=== PATIENT | female | born 2000 | race Caucasian/White ===

== ENCOUNTER 2020-11-26 14:02 | Emergency (ER) | payer BC, MEDICAID ==
[~2020-11-26] VITALS: Ht 162.6 cm; Wt 141.4 kg
[2020-11-26 14:12] VITALS: BP 143/88; TEMP 98.2
[2020-11-26 15:04] LABS: BASO % 0.3 % (0.0-2.0); EOS # 0.2 (0.0-0.7); EOS % 2.6 % (0-4.0); GRAN # 4.8 (1.4-6.5); GRAN % 62.7 % (42.2-75.2); HEMATOCRIT 41.1 % (37.0-47.0); HEMOGLOBIN 13.7 g/dl (12.5-16.0); LYMPH # 1.7 (1.2-3.4); LYMPH % 22.2 % (20.0-51.0); MEAN CELL VOLUME 89 fl (80.0-100.0); MEAN CORPUSCULAR HEMOGLOBIN 30 pg (27.0-31.0); MEAN CORPUSCULAR HGB CONC 33 g/dl (33.0-37.0); MEAN PLATELET VOLUME 10.5 fl (7.4-10.4); MONO # 0.9 (0.1-0.6); MONO % 11.5 % (1.7-9.3); PLATELET COUNT 187 K/mm3 (130-400); RED BLOOD COUNT 4.62 M/mm3 (4.10-5.30); REDCELL DISTRIBUTION WIDTH-CV 13.2 % (11.5-14.5)
[2020-11-26 15:15] LABS: ALBUMIN 3.9 gm/dL (3.5-5.0); BILIRUBIN,TOTAL 0.4 mg/dL (0.0-1.0); C-REACTIVE PROTEIN 1.6 mg/dL (0.0-0.9); CALCIUM 9.2 mg/dL (8.4-10.2); CREATININE, serum 0.5 (0.52-1.25); POTASSIUM 4.3 mmol/L (3.4-5.0); TOTAL PROTEIN 7.4 gm/dL (6.4-8.2)
[2020-11-26 15:20] LABS: STREP SCREEN NEGATIVE
[2020-11-26] MEDS ORDERED: PHENERGAN 25 TA25 MG PO (16:04)
[2020-11-26 16:40] VITALS: PULSE 71
== END 2020-11-26 16:40 | disposition home or self-care (01) ==
LOC: COL.ER 14:02
PROVIDERS: Emergency Medicine
DX: O99.511 Diseases of the respiratory system complicating pregnancy, first trimester (principal); J02.9 Acute pharyngitis, unspecified; O99.331 Smoking (tobacco) complicating pregnancy, first trimester; F17.210 Nicotine dependence, cigarettes, uncomplicated; Z20.822 Contact with and (suspected) exposure to COVID-19; Z3A.14 14 weeks gestation of pregnancy
CPT/HCPCS: J1100; J2550; J7030

== ENCOUNTER 2020-12-13 21:30 | Emergency (ER) | payer BC, MEDICAID ==
[~2020-12-13] VITALS: Ht 162.6 cm; Wt 140.9 kg
[~2020-12-13 21:30] MED LIST: PHENERGAN 25 TA25 MG PO
[2020-12-13 21:38] VITALS: TEMP 97.6
[2020-12-13 22:11] LABS: MUCOUS Present /lpf; PH 5 (5-8); URINE APPEARANCE Cloudy; URINE BACTERIA Rare /hpf; URINE BILIRUBIN Negative (NEGATIVE); URINE BLOOD 2+ (NEGATIVE); URINE COLOR Yellow; URINE GLUCOSE Negative (NEGATIVE); URINE KETONE Negative (NEGATIVE); URINE LEUKOCYTE ESTERASE 2+ (NEGATIVE); URINE NITRATE Negative (NEGATIVE); URINE PROTEIN(semi-quant) 2+ (NEGATIVE); URINE RBC >50 /hpf; URINE UROBILINOGEN Negative (NEGATIVE); URINE WBC None Seen /hpf
[2020-12-13 22:22] LABS: COLLECTION METHOD CLEAN CATCH
[2020-12-13 22:29] LABS: BASO % 0.1 % (0.0-2.0); EOS # 0.2 (0.0-0.7); EOS % 2.2 % (0-4.0); GRAN # 7.1 (1.4-6.5); GRAN % 68.8 % (42.2-75.2); HEMATOCRIT 42.8 % (37.0-47.0); LYMPH # 2.3 (1.2-3.4); LYMPH % 22.1 % (20.0-51.0); MEAN CELL VOLUME 91 fl (80.0-100.0); MEAN CORPUSCULAR HEMOGLOBIN 30 pg (27.0-31.0); MEAN CORPUSCULAR HGB CONC 33 g/dl (33.0-37.0); MEAN PLATELET VOLUME 10.3 fl (7.4-10.4); MONO # 0.7 (0.1-0.6); MONO % 6.4 % (1.7-9.3); PLATELET COUNT 205 K/mm3 (130-400); RED BLOOD COUNT 4.69 M/mm3 (4.10-5.30); REDCELL DISTRIBUTION WIDTH-CV 13.5 % (11.5-14.5)
[2020-12-13] MEDS ORDERED: CEPHALEXIN500 M1 PO (23:30)
[2020-12-13 23:44] VITALS: BP 154/70; PULSE 68
== END 2020-12-13 23:44 | disposition home or self-care (01) ==
LOC: COL.ER 21:30
PROVIDERS: Emergency Medicine; Nurse Practitioner Primary Care
DX: N39.0 Urinary tract infection, site not specified (principal); F17.210 Nicotine dependence, cigarettes, uncomplicated
CPT/HCPCS: J0696

== ENCOUNTER 2021-03-20 13:51 | Emergency (ER) | payer BC, MEDICAID ==
[~2021-03-20] VITALS: Ht 162.6 cm; Wt 148.6 kg
[2021-03-20 14:45] VITALS: BP 118/72; PULSE 88
== END 2021-03-20 14:45 | disposition home or self-care (01) ==
LOC: COL.ER 13:51
DX: O9A.23 Injury, poisoning and certain other consequences of external causes complicating the puerperium (principal); S39.012A Strain of muscle, fascia and tendon of lower back, initial encounter; Z3A.30 30 weeks gestation of pregnancy; W10.9XXA Fall (on) (from) unspecified stairs and steps, initial encounter; Y93.01 Activity, walking, marching and hiking

== ENCOUNTER → 2021-03-20 | Outpatient (CLI) | payer BC, MEDICAID ==
[~2021-03-20] VITALS: Ht 162.6 cm; Wt 148.6 kg
[~2021-03-20] MED LIST changes: +CEPHALEXIN500 M1 PO
[2021-03-20 13:15] VITALS: BP 128/69; PULSE 83; TEMP 97.8
--- NOTE | 2021-03-20 13:32 | NUR ---
1315 PATIENT HERE WITH COMPLAINTS OF LOW BACK PAIN AND LEG PAIN WHEN TAKES A STEP. RIGHT LEG GIVES OUT ON HER OCCASIONALLY ALSO. PATIENT WAS WALKING UP STAIRS YESTERDAY MORNING AND HER LEG GAVE OUT ON HER. PATIENT STATES SHE TURNED SO SHE DID NOT HIT OR FALL ON ABDOMEN AND HIT HER UPPER CHEST INSTEAD. PATIENT HAS BRUISING TO UPPER CHEST, BUT NO BRUISING TO ABDOMEN. NO COMPLAINTS OF CRAMPING OR CONTRACTIONS, AND NO VAGINAL BLEEDING NOTED. EFM ON FHT 135 GOOD ACCELERATIONS NOTED AND BABY IS VERY ACTIVE. NO CONTRACTIONS ON MONITOR OR PALPATED. ASSESSMENT COMPLETED BY Marva VILLALOBOS RN. DR RITTER CALLED AND UPDATED ON ALL ABOVE INFORMATION. ORDERS TO GET A 20 MIN REACTIVE STRIP AND TRANSFER PATIENT TO ER FOR BACK AND LEG DISCOMFORT. PATIENT DENIES AND OB RELATED DISCOMFORT AT THIS TIME.
--- NOTE | 2021-03-20 13:52 | NUR ---
1350 PATIENT TO ER VIA WHEELCHAIR. ER WILL ASSUME CARE AT THIS TIME
== END ==
LOC: COL.ER 12:47 → LDRO 12:50 → EDSTATUS 13:36
DX: O9A.213 Injury, poisoning and certain other consequences of external causes complicating pregnancy, third trimester (principal); Z3A.25 25 weeks gestation of pregnancy; Z87.891 Personal history of nicotine dependence

== ENCOUNTER 2021-05-08 12:32 | Outpatient (CLI) | payer MEDICAID ==
[~2021-05-08] VITALS: Ht 162.6 cm; Wt 157.4 kg
[2021-05-08] MEDS ORDERED: PRENATAL TABLET PO (13:01)
[2021-05-08 13:30] VITALS: BP 118/77; PULSE 101; TEMP 98.3
--- NOTE | 2021-05-08 13:37 | NUR ---
1235: PT. AMBULATORY TO UNIT W/ SPOUSE FOR C/O OF SWELLING AND BO. PT. ESCORTED TO LR3 AND INTO CLEAN GOWN. EFM/TOCO ON, VS OBTAINED, ASSESSMENTS COMPLETED. DISCUSSED POC W/ PT AND PT. STATES NO QUESTIONS/CONCERNS AT THIS TIME. WILL CONTINUE TO MONITOR PT AND FHT
[2021-05-08 13:45] VITALS: BP 135/86; PULSE 88
[2021-05-08 14:00] VITALS: BP 135/92; PULSE 88
--- NOTE | 2021-05-08 14:01 | NUR ---
FHT 1330: DIFFICULTY TRACING FHT; RN AT BS ATTEMPTING TO TRACE. 1345: DIFFICULTY TRACING FHT DUE TO MATERNAL HABITUS; RN AT BS ATTEMPTING TO TRACE FHT
[2021-05-08 14:28] LABS: BASO % 0.2 % (0.0-2.0); EOS # 0.1 K/mm3 (0.0-0.7); EOS % 0.9 % (0.0-4.0); GRAN # 9.6 K/mm3 (1.4-6.5); GRAN % 76.8 % (42.2-75.2); HEMOGLOBIN 11.7 g/dl (12.5-16.0); LYMPH # 1.9 K/mm3 (1.2-3.4); LYMPH % 15.3 % (20.0-51.0); MEAN CELL VOLUME 90 fl (80.0-100.0); MEAN CORPUSCULAR HEMOGLOBIN 30 pg (27-31); MEAN CORPUSCULAR HGB CONC 34 g/dl (33.0-37.0); MEAN PLATELET VOLUME 10.1 fl (7.4-10.4); MONO # 0.8 K/mm3 (0.1-0.6); PLATELET COUNT 187 K/mm3 (130-400); RED BLOOD COUNT 3.88 M/mm3 (4.10-5.30); REDCELL DISTRIBUTION WIDTH-CV 13.2 % (11.5-14.5)
[2021-05-08 14:30] VITALS: BP 120/75; PULSE 96
[2021-05-08 14:32] LABS: HEMATOCRIT 34.9 % (37.0-47.0)
[2021-05-08 14:42] LABS: COLLECTION METHOD CLEAN CATCH; URINE COLOR Yellow (YELLOW)
[2021-05-08 14:43] LABS: PH 7 (5-8); URINE APPEARANCE Hazy (CLEAR/HAZY); URINE BILIRUBIN Negative (NEGATIVE); URINE BLOOD Negative (NEGATIVE); URINE GLUCOSE Negative (NEGATIVE); URINE KETONE Negative (NEGATIVE); URINE LEUKOCYTE ESTERASE Negative (NEGATIVE); URINE NITRATE Negative (NEGATIVE); URINE PROTEIN(semi-quant) Negative (NEGATIVE); URINE UROBILINOGEN Negative (NEGATIVE)
[2021-05-08 14:50] LABS: ALBUMIN 2.5 gm/dL (3.5-5.0); BILIRUBIN,TOTAL 0.3 mg/dL (0.2-1.2); CALCIUM 8.3 mg/dL (8.4-10.2); CREATININE, serum 0.62 mg/dL (0.57-1.11); TOTAL PROTEIN 6.2 gm/dL (6.2-8.1)
[2021-05-08 15:00] VITALS: PULSE 83
[2021-05-08 15:21] VITALS: BP 132/84; PULSE 83
--- NOTE | 2021-05-08 15:39 | NUR ---
1530: DISCHARGED PER DR. FAN. RN WENT OVER DC PAPERWORK WITH PT. PT. HAS NO QUESTIONS/CONCERNS AT THIS TIME. PT. STABLE AND STEADY GAIT TO FRONT OF UNIT WITH RN. RN INFORMED TO CALL WITH ANY QUESTIONS/CONCERNS.
== END 2021-05-08 15:30 | disposition home or self-care (01) ==
LOC: LDRO 12:32 → LDR 13:08 → LDRO 15:30
PROVIDERS: Student in an Organized Health Care Education/Training Program
DX: O26.893 Other specified pregnancy related conditions, third trimester (principal); R51.9 Headache, unspecified; Z3A.37 37 weeks gestation of pregnancy
CPT/HCPCS: OP

== ENCOUNTER 2021-05-11 00:36 | Outpatient (CLI) | payer MEDICAID ==
[~2021-05-11] VITALS: Ht 162.6 cm; Wt 157.3 kg
[~2021-05-11 00:36] MED LIST changes: +PRENATAL TABLET PO
[2021-05-11 01:00] VITALS: BP 142/64; PULSE 89; TEMP 98.4
--- NOTE | 2021-05-11 01:00 | NUR ---
0100 G1L0 37.6 WEEK GEST TO LR4 WITH C/O SROM AFTER INTERCOARSE THIS EVENING AND NOW HAVING CONTRACTIONS EVERY 5 MINUTES. EFM. HARD TO TRACE FHT'S DUE TO PT BEING 346 LBS. STATES FEELS CONTRACTIONS EVERY 5 MINUTES THAT ARE SHARP AND LAST ABOUT 30 SECONDS. UNABLE TO TRACE OR PALPATE CONTRACTIONS. BABY VERY ACTIVE WITH BASELINE 140 AND ACCELS TO 160'S. SVE CLOSE/ THICK / -3 AND BALLOTABLE. AMNIOTRACE NEG WITH SLIGHT NARAYANAN TONES NOTED AROUND COTTON TIP. INTROITUS WAS MOIST BUT NO FLUID NOTED WITH SVE. ADM ASSESSMENT COMPLETED. 0130 LARGE EMESIS. STATES USUALLY THROWS UP IF HAVING PAIN OR SOMETIME JUST WALKING AROUND AT WORK.
[2021-05-11 02:00] VITALS: BP 143/71; PULSE 79
--- NOTE | 2021-05-11 02:00 | NUR ---
0200 SVE WITH NEG AMNIOTRACE, NO FLUID NOTED AND NO CERVICAL CHANGE. CONTRACTION NOTED EVERY 8 MIN ON EFM BUT PT MORE COMFORTABLE NOW THEN ON ADM. 0210 DR BECKETT NOTIFIED AND DISMISS INSTRUCTIONS RECEIVED. 0225 HOME WITH INSTRUCTIONS.
== END 2021-05-11 02:25 | disposition home or self-care (01) ==
LOC: LDRO 00:36 → LDR 00:36 → LDRO 02:25
DX: O42.10 Premature rupture of membranes, onset of labor more than 24 hours following rupture, unspecified weeks of gestation (principal); Z3A.37 37 weeks gestation of pregnancy
CPT/HCPCS: OP

== ENCOUNTER 2021-05-20 12:54 | Outpatient (CLI) | payer MEDICAID ==
[~2021-05-20] VITALS: Ht 162.6 cm; Wt 159.5 kg
--- NOTE | 2021-05-20 13:00 | NUR ---
1300-39.2 G1L1 arrives on unit. States she was seen in clinic and had a low PILI. Pt states she feels increased vaginal discharge. Reports last movement yesterday. Denies VB or contractions. Changes into clean gown. Resting in bed. 1305- EFM explained and placed. RN remains at bedside adj efm. FHR difficult to trace due to maternal habitus. VS obtained, assessment completed. C. Case updateds Dr. Shields. See physician notification. Pt updated on plan of care. 1315- C. Case at bedside. 1325- C. Case at nurses desk. Notifies this RN spec exam done with thick white discharge noted. Amnitest negative. SVE Cl/Th/Hi. 1340- FHR reactive. EFM off. 1355- Discharge instructions reviewed with patient and family who verbalize understanding. Ambulatory off unit with family.
[2021-05-20 13:10] VITALS: BP 143/89; PULSE 88; TEMP 97.9
[2021-05-20 13:30] VITALS: BP 146/87; PULSE 89
[2021-05-20 13:40] VITALS: BP 134/86; PULSE 92
== END 2021-05-20 13:55 | disposition home or self-care (01) ==
LOC: LDRO 12:54 → LDR 13:00 → LDRO 13:55
DX: O26.893 Other specified pregnancy related conditions, third trimester (principal); N89.8 Other specified noninflammatory disorders of vagina; Z3A.39 39 weeks gestation of pregnancy
CPT/HCPCS: OP

== ENCOUNTER 2021-05-21 23:00 | Outpatient (CLI) | payer MEDICAID ==
[~2021-05-21] VITALS: Ht 162.6 cm; Wt 159.5 kg
--- NOTE | 2021-05-21 23:00 | NUR ---
2315 G1L0 39.3 WEEK GEST TO LR4 WITH C/O NO MOVEMENT FELT X3 DAYS. STATES WAS AT THE DOCTORS OFFICE YESTERDAY FOR SONO AND WAS SENT IMMEDIATELY TO L/D TO BE CHECKED OUT AND WAS SENT HOME FROM LABOR AND DELIVERY AFTER MONITER CHECK AND SVE. STATES IS UNHAPPY BECAUSE FEELS LIKE NO ONE IS TAKING HER CONCERNS SERIOUSLY. EFM ON. ADM ASSESSMENT DONE. 2340 HEART TONE BASELINE 130'S WITH GOOD VARIABILITY AND ACCELS NOTED. STATES HAS FELT THE BABY MOVE A COUPLE OF TIMES NOW. NO C/O CONTRACTIONS.
[2021-05-21 23:20] VITALS: BP 135/65; PULSE 100; TEMP 97.9
--- NOTE | 2021-05-21 23:50 | NUR ---
2350 FEELING THE BABY MOVE MORE NOW. GOOD ACCELS AND VARIABILITY NOTED. DR PABLO NOTIFIED AND ORDER TO DISMISS RECEIVED. 0001 HOME WITH INSTRUCTIONS.
== END 2021-05-22 00:01 | disposition home or self-care (01) ==
LOC: LDRO 23:00
DX: O36.8199 Decreased fetal movements, unspecified trimester, other fetus (principal); Z3A.39 39 weeks gestation of pregnancy

== ENCOUNTER 2021-05-23 17:47 | Inpatient (IN) | payer MEDICAID ==
[~2021-05-23] VITALS: Ht 162.6 cm; Wt 159.5 kg
[2021-05-23] VITALS (10 sets, daily range): BP systolic 133; BP diastolic 80; PULSE 78–88; TEMP 98.3
--- NOTE | 2021-05-23 18:30 | NUR ---
183-Patient who is , 39.5 week gestation, ambulates onto unit with S/O. Oriented to LDR6. Patient instructed to change into gown. Patient denies LOF, VB, and regular ctx. Patient reports decreased movement, states baby only moved once today. EFM/TOCO explained and applied. VS obtained. Plan of care discussed. 1844-IV started to RH. Blood obtained and sent to lab. Assessments completed. Plan of care discussed, patient verbalizes understanding.
--- NOTE | 2021-05-23 20:10 | NUR ---
2009-Difficulty tracing FHR due to maternal position and excess adipose tissue. RN at bedside adjusting monitors. 2049-Cytotec plan of care explained to patient and S/O. They both verbalize understanding. Consents explained and signed. 2099-First Cytotec dose administered. See EMAR. Patient repositioned in bed.
[2021-05-23 20:25] LABS: BASO % 0.3 % (0.0-2.0); EOS # 0.1 K/mm3 (0.0-0.7); EOS % 0.8 % (0.0-4.0); GRAN # 9.1 K/mm3 (1.4-6.5); GRAN % 75.9 % (42.2-75.2); HEMATOCRIT 38.8 % (37.0-47.0); LYMPH # 1.9 K/mm3 (1.2-3.4); LYMPH % 15.7 % (20.0-51.0); MEAN CELL VOLUME 90 fl (80.0-100.0); MEAN CORPUSCULAR HEMOGLOBIN 30 pg (27-31); MEAN CORPUSCULAR HGB CONC 34 g/dl (33.0-37.0); MEAN PLATELET VOLUME 10.9 fl (7.4-10.4); MONO # 0.7 K/mm3 (0.1-0.6); MONO % 6.1 % (1.7-9.3); PLATELET COUNT 216 K/mm3 (130-400); RED BLOOD COUNT 4.33 M/mm3 (4.10-5.30); REDCELL DISTRIBUTION WIDTH-CV 13.1 % (11.5-14.5)
[2021-05-23 21:47] LABS: ALBUMIN 2.7 gm/dL (3.5-5.0); BILIRUBIN,TOTAL 0.4 mg/dL (0.2-1.2); CALCIUM 8.4 mg/dL (8.4-10.2); CREATININE, serum 0.57 mg/dL (0.57-1.11); POTASSIUM 3.8 mmol/L (3.5-4.5); TOTAL PROTEIN 6.6 gm/dL (6.2-8.1)
--- NOTE | 2021-05-23 23:22 | NUR ---
[id number]: Difficulty tracing ctx due to maternal position. This RN at bedside adjusting monitors. 2340-Late deceleration noted. This RN at bedside repositioning patient and adjusting monitor.
[2021-05-24] VITALS (20 sets, daily range): BP systolic 76–143; BP diastolic 34–79; PULSE 56–89; TEMP 97.2–98.9
--- NOTE | 2021-05-24 00:20 | NUR ---
0020-Recurrent late decelerations noted on FHR strip. This RN at bedside repositioning patient. IVF blous started. Will continue to monitor.
--- NOTE | 2021-05-24 02:20 | NUR ---
0220-Difficulty tracing FHR due to maternal position. RN at bedside adjusting. 0223- at bedside discussing with patient and s/o. 0235-Patient is prepped for . 0242-Patient ambulates to OR.
--- NOTE | 2021-05-24 09:29 | NUR ---
Initial visit; Patient and visitors thanked for offering congratulations for the of her son. Shrimp Cleaner thanked patient for choosing our hospital.
--- NOTE | 2021-05-24 12:45 | NUR ---
Pt up to the bathroom with stand-by assist and without complications. Hardwick removed. Norma-care done. Plan of care reviewed with pt.
[2021-05-24 13:29] LABS: HEMATOCRIT 37.2 % (37.0-47.0); HEMOGLOBIN 12.4 g/dl (12.5-16.0)
[2021-05-25 08:00] VITALS: BP 128/81; PULSE 87; TEMP 98
[2021-05-25] MEDS ORDERED: PERCOCET 325 MG1 TA2 PO (10:27)
[2021-05-25] MEDS ORDERED: IBU600 MG PO (10:27)
== END 2021-05-25 11:40 | disposition home or self-care (01) | DRG 788 ==
LOC: OB 17:47 → LDR 18:22 → OB 18:22
PROVIDERS: ADMIT Obstetrics & Gynecology
PROC: 3E0P7VZ Introduction of Hormone into Female Reproductive, Via Natural or Artificial Opening (ICD-10-PCS; 2021-05-23)
PROC: 10D00Z1 Extraction of Products of Conception, Low, Open Approach (ICD-10-PCS; principal; 2021-05-24)
DX: O36.8130 Decreased fetal movements, third trimester, not applicable or unspecified (principal); O34.40 Maternal care for other abnormalities of cervix, unspecified trimester; O99.213 Obesity complicating pregnancy, third trimester; O99.824 Streptococcus B carrier state complicating childbirth; O99.334 Smoking (tobacco) complicating childbirth; O76 Abnormality in fetal heart rate and rhythm complicating labor and delivery; O13.4 Gestational [pregnancy-induced] hypertension without significant proteinuria, complicating childbirth; O99.344 Other mental disorders complicating childbirth; F41.9 Anxiety disorder, unspecified; F32.A Depression, unspecified; Z37.0 Single live birth; Z3A.39 39 weeks gestation of pregnancy
CPT/HCPCS: J0171; J0690; J1100; J1885; J2370; J2405; J2590; J7120

== ENCOUNTER 2024-01-06 16:15 | Emergency (ER) | payer MEDICAID ==
[~2024-01-06] VITALS: Ht 162.6 cm; Wt 193.6 kg
[~2024-01-06 16:15] MED LIST changes: +IBU600 MG PO; +NORCO 325 MG-51 TAB PO; +PERCOCET 325 MG1 TA2 PO
[2024-01-06 16:21] VITALS: TEMP 98.2
[2024-01-06] MEDS ORDERED: NS 1,000 ML IV ONE (17:00)
[2024-01-06 17:05] LABS: BASO % 0.3 % (0.0-2.0); EOS # 0.1 K/mm3 (0.0-0.7); EOS % 1.2 % (0.0-4.0); GRAN # 6.6 K/mm3 (1.4-6.5); GRAN % 62.5 % (42.2-75.2); HEMATOCRIT 43.2 % (37.0-47.0); HEMOGLOBIN 14.2 g/dl (12.5-16.0); LYMPH # 3.1 K/mm3 (1.2-3.4); LYMPH % 29.1 % (20.0-51.0); MEAN CELL VOLUME 92 fl (80.0-100.0); MEAN CORPUSCULAR HEMOGLOBIN 30 pg (27-31); MEAN CORPUSCULAR HGB CONC 33 g/dl (33.0-37.0); MEAN PLATELET VOLUME 9.7 fl (7.4-10.4); MONO # 0.7 K/mm3 (0.1-0.6); MONO % 6.5 % (1.7-9.3); PLATELET COUNT 250 K/mm3 (130-400); RED BLOOD COUNT 4.71 M/mm3 (4.10-5.30); REDCELL DISTRIBUTION WIDTH-CV 12.6 % (11.5-14.5)
[2024-01-06 17:16] LABS: ALBUMIN 3.6 g/dL (3.5-5.0); BILIRUBIN,TOTAL 0.6 mg/dL (0.2-1.2); CREATININE, serum 0.74 mg/dL (0.57-1.11); POTASSIUM 3.8 mEq/L (3.5-4.5); TOTAL PROTEIN 7.2 g/dl (6.2-8.1)
[2024-01-06] MEDS ORDERED: CIPRO 500MG TA500 MG PO (18:29)
[2024-01-06] MEDS ORDERED: Ciprofloxacin 500 MG TAB PO ONE (18:30)
[2024-01-06 18:50] VITALS: BP 128/84; PULSE 78
== END 2024-01-06 19:00 | disposition home or self-care (01) ==
LOC: COL.ER 16:15
PROVIDERS: Physician Assistant
DX: A02.0 Salmonella enteritis (principal)
CPT/HCPCS: J7030